=== PATIENT | female | born 1995 | race Caucasian/White ===

== ENCOUNTER 2017-10-31 08:31 | Emergency (ER) | END 2017-10-31 11:20 | disposition home or self-care (01) ==

== ENCOUNTER 2017-11-15 00:39 | Emergency (ER) | END 2017-11-15 03:13 | disposition home or self-care (01) ==

== ENCOUNTER 2018-04-04 03:19 | Emergency (ER) | END 2018-04-04 06:52 | disposition home or self-care (01) ==

== ENCOUNTER 2018-05-19 08:59 | Day surgery (SDC) | END 2018-05-19 16:25 | disposition home or self-care (01) ==

== ENCOUNTER 2018-06-05 21:14 | Emergency (ER) | END 2018-06-05 23:45 | disposition home or self-care (01) ==

== ENCOUNTER 2018-11-29 20:27 | Emergency (ER) | payer OTHER ==
[~2018-11-29] VITALS: Ht 172.7 cm; Wt 79.5 kg
[~2018-11-29 20:27] MED LIST: HYDR-3980 PO; IBUP800T48 PO; ONDA4TAB14 PO
[2018-11-29 21:20] VITALS: Ht 172.7 cm; Wt 79.5 kg
[2018-11-29] MEDS ORDERED: KETOROLAC 30 MG INJ IM STA (22:31)
[2018-11-29] MEDS ORDERED: ONDANSETRON (ODT) 4 MG TAB ODT STA (22:31)
[2018-11-30] MEDS ORDERED: CIPR500T4 PO (00:07)
[2018-11-30] MEDS ORDERED: ACET-141 PO (00:08)
[2018-11-30] MEDS ORDERED: IBUP-1542 PO (00:08)
[2018-11-30] MEDS ORDERED: TAMS-14 PO (00:08)
--- NOTE | 2018-11-30 00:10 | ERD ---
ER Documentation Chief Complaint Chief Complaint left flank pain, +fever +nausea +cough HPI 23-year-old female presents for left flank pain times 1 day. The flank pain is noted to be 7 out of 10. She denies dysuria. Patient is also had fevers and nausea. He states that her fever was 101 at home. She took Tylenol with some relief however the fever returns. Last menstrual period was 11/18/2018. She does have a history of kidney stones. No other significant past medical history. ROS All systems reviewed and are negative except as per history of present illness. Medications Home Meds Active Scripts Tamsulosin Hcl* (Flomax*) 0.4 Mg Cap.er.24h, 0.4 MG PO DAILY for kidney stones, #30 CAP Prov:FIORELLA LANGE DO 11/30/18 Acetaminophen* (Acetaminophen*) 500 MG Extra Strength Tablet, 500 MG PO Q4H PRN for PAIN AND OR ELEVATED TEMP, #30 TAB Prov:FIORELLA LANGE DO 11/30/18 Ibuprofen* (Motrin*) 600 Mg Tab, 600 MG PO Q6H PRN for PAIN AND OR ELEVATED TEMP, #30 TAB Prov:FIORELLA LANGE DO 11/30/18 Ciprofloxacin Hcl* (Ciprofloxacin Hcl*) 500 Mg Tablet, 500 MG PO BID for uti for 5 Days, #10 TAB Prov:FIORELLA LANGE DO 11/30/18 Ondansetron (Ondansetron Odt) 4 Mg Tab.rapdis, 4 MG PO Q6H PRN for NAUSEA AND/OR VOMITING, #10 TAB Prov:DAVON VASQUEZ MD 06/05/18 Ibuprofen* (Motrin*) 800 Mg Tab, 800 MG PO Q6H PRN for PAIN AND OR ELEVATED TEMP, #30 TAB Prov:DAVON VASQUEZ MD 06/05/18 Hydrocodone/Acetaminophen ([place] 10-325 Tablet) 1 Each Tablet, 1 TAB PO Q6H PRN for PAIN, #7 TAB Prov:DAVON VASQUEZ MD 06/05/18 Allergies Allergies: Coded Allergies: No Known Allergy (Unverified , 11/29/18) PMhx/Soc History of Surgery: Yes (LITHOTRIPSY ) Anesthesia Reaction: No Hx Neurological Disorder: No Hx Respiratory Disorders: No Hx Cardiac Disorders: No Hx Psychiatric Problems: No Hx Miscellaneous Medical Probl: Yes (L KIDNEY STONE) Hx Alcohol Use: No Hx Substance Use: No Hx Tobacco Use: No Smoking Status: Never smoker Physical Exam Vitals Vital Signs Date Temp Pulse Resp B/P (MAP) Pulse Ox O2 O2 Flow FiO2 Time Delivery Rate 11/30/18 98.6 94 19 132/74 98 Room Air 00:30 (93) 11/29/18 101.4 117 20 145/72 97 21:20 (96) Physical Exam Const: No acute distress Resp: Clear to auscultation bilaterally Cardio: Regular rate and rhythm, no murmurs Abd: Soft, non distended. Normal bowel sounds, no McBurney's point tenderness, no Romo sign, no rebound or guarding noted Skin: No petechiae or rashes Back: There is flank tenderness on the left side to palpation Ext: No cyanosis, or edema Neur: Awake and alert Psych: Normal Mood and Affect Result Diagram: 11/29/18225011/29/182250 Results 24 hrs Laboratory Tests Test 11/29/18 22:38 11/29/18 22:46 11/29/18 22:51 Urine Color YELLOW Urine Clarity CLEAR Urine pH 7.0 Urine Specific [place] 1.013 Urine Ketones 2+ mg/dL Urine Nitrite NEGATIVE mg/dL Urine Bilirubin NEGATIVE mg/dL Urine Urobilinogen NEGATIVE mg/dL Urine Leukocyte Esterase NEGATIVE Alvino/ul Urine Hemoglobin NEGATIVE mg/dL Urine Glucose NEGATIVE mg/dL Urine Total Protein NEGATIVE mg/dl POC Beta HCG, Qualitative NEGATIVE White Blood Count 6.3 10^3/ul Red Blood Count 4.49 10^6/ul Hemoglobin 12.9 g/dl Hematocrit 39.3 % Mean Corpuscular Volume 87.5 fl Mean Corpuscular Hemoglobin 28.7 pg Mean Corpuscular 32.8 g/dl Hemoglobin Concent Red Cell Distribution Width 13.2 % Platelet Count 322 10^3/UL Mean Platelet Volume 8.6 fl Immature Granulocytes % 0.300 % Neutrophils % 79.7 % Lymphocytes % 8.4 % Monocytes % 11.1 % Eosinophils % 0.2 % Basophils % 0.3 % Nucleated Red Blood Cells % 0.0 /100WBC Immature Granulocytes # 0.020 10^3/ul Neutrophils # 5.0 10^3/ul Lymphocytes # 0.5 10^3/ul Monocytes # 0.7 10^3/ul Eosinophils # 0.0 10^3/ul Basophils # 0.0 10^3/ul Nucleated Red Blood Cells # 0.0 10^3/ul Sodium Level 140 mmol/L Potassium Level 4.6 mmol/L Chloride Level 101 mmol/L Carbon Dioxide Level 25 mmol/L Anion Gap 14 Blood Urea Nitrogen 6 mg/dl Creatinine 0.68 mg/dl Est Glomerular Filtrat > 60 mL/min Rate mL/min Glucose Level 102 mg/dl Calcium Level 9.7 mg/dl Total Bilirubin 0.4 mg/dl Direct Bilirubin 0.00 mg/dl Indirect Bilirubin 0.4 mg/dl Aspartate Amino 26 IU/L Transf (AST/SGOT) Alanine 26 IU/L Aminotransferase (ALT/SGPT) Alkaline Phosphatase 82 IU/L Total Protein 9.0 g/dl Albumin 4.9 g/dl Globulin 4.10 g/dl Albumin/Globulin Ratio 1.19 Lipase 59 U/L Current Medications Medications Dose Sig/Feliciano Start Time Status Last (Trade) Ordered Route PRN Stop Time Admin Dose Reason Admin Ketorolac 30 mg ONCE STAT 11/29/18 DC 11/29/18 Tromethamine IM 22:31 22:55 (Toradol) 11/29/18 22:32 Ondansetron 4 mg ONCE STAT 11/29/18 DC 11/29/18 HCl (Zofran ODT 22:31 22:54 Odt) 11/29/18 22:32 Procedures/MDM Medical Decision Making: Differential diagnosis includes but not limited to acute gastritis, acute gastroenteritis, appendicitis, cholecystitis, pancreatitis, kidney stone. Patient appeared well on physical exam. Nontoxic appearing. Labs: CBC showed no anemia, no elevated WBC to suggest infection CMP showed no electrolyte abnormalities, there was normal kidney and liver function Lipase was normal Urine was negative UA was negative for infection Imaging: KUB showed tiny bilateral calculi overlying the renal silhouettes, less conspicuous than on the recent ultrasound or prior CT, the renal silhouettes obscured by bowel gas. Renal ultrasound showed bilateral intrarenal calculi are present the largest 2 mm in the left interpolar collecting system without associated hydronephrosis. Abdominal examination is benign, low suspicion for an acute abdomen ED course: Patient was given Toradol and Zofran. Symptoms improved with treatment. Given patient's findings of kidney stones as well as fever, patient will be given a trial of Flomax and Cipro as well as supportive medications Patient advised to follow up with PCP in 1-2 days. Patient advised to return to ED for new or worsening symptoms. Patient stable on discharge from the ED. Disclaimer: Inadvertent spelling and grammatical errors are likely due to EHR/dictation software use and do not reflect on the overall quality of patient care. Also, please note that the electronic time recorded on this note does not necessarily reflect the actual time of the patient encounter. Departure Diagnosis: Primary Impression: Abdominal pain Abdominal location: left lower quadrant Qualified Codes: R10.32 - Left lower quadrant pain Additional Impression: Kidney stones Condition: Fair Patient Instructions: Treating Kidney Stones: Medications, Preventing Kidney Stones Referrals: [facility] YOU HAVE RECEIVED A MEDICAL SCREENING EXAM AND THE RESULTS INDICATE THAT YOU DO NOT HAVE A CONDITION THAT REQUIRES URGENT TREATMENT IN THE EMERGENCY DEPARTMENT. FURTHER EVALUATION AND TREATMENT OF YOUR CONDITION CAN WAIT UNTIL YOU ARE SEEN IN YOUR DOCTORS OFFICE WITHIN THE NEXT 1-2 DAYS. IT IS YOUR RESPONSIBILITY TO MAKE AN APPOINTMENT FOR FOLOW-UP CARE. IF YOU HAVE A PRIMARY DOCTOR --you should call your primary doctor and schedule an appointment IF YOU DO NOT HAVE A PRIMARY DOCTOR YOU CAN CALL OUR PHYSICIAN REFERRAL HOTLINE AT IF YOU CAN NOT AFFORD TO SEE A PHYSICIAN YOU CAN CHOSE FROM THE FOLLOWING [facility] [address] [facility]. [facility] [address] [facility]. [facility] [address] [facility] [facility] [address] [facility]. [facility] [address] [facility]. [facility]. [address] Additional Instructions: Call your primary care doctor TOMORROW for an appointment during the next 1-2 days.See the doctor sooner or return here if your condition worsens before your appointment time. FIORELLA LANGE DO Nov 30, 2018 00:10
[2018-11-30 00:30] VITALS: BP 132/74; PULSE 94; RESP 19
== END 2018-11-30 00:32 | disposition home or self-care (01) ==
LOC: FTE 20:27
DX: N20.0 Calculus of kidney (principal)
CPT/HCPCS: 36415; 74018; 76775; 80053; 81003; 81025; 83690; 85025; 87086; 96372; J1885; Z7502; Z7610